=== PATIENT | female | born 1960 | race Caucasian/White ===

== ENCOUNTER 2017-05-22 18:12 | Emergency (ER) | payer OTHER ==
[~2017-05-22] VITALS: Ht 167.6 cm; Wt 95.3 kg
[2017-05-22] MEDS ORDERED: CLON0.1T PO (19:26)
[2017-05-22] MEDS ORDERED: LOSA100T3 PO (19:26)
[2017-05-22] MEDS ORDERED: SPIR50TA PO (19:26)
--- NOTE | 2017-05-22 19:32 | NUR ---
DR KEYES WAS NOTIFIED ABOUT THE PT HEALTH COMPLAINES. NO BEDS AVAILABLE. PT PLACED ON WHEELCHAIR IN HALLWAY. DR HARRIS EVALUATED THE PT.
[2017-05-22] MEDS ORDERED: CLONIDINE HCL 0.2 MG TABLET PO ONE (19:45)
[2017-05-22 19:50] LABS: BASOPHILS # (AUTO) 0.1 K/uL (0.0-8.0); BASOPHILS % (AUTO) 0.9 % (0.0-2.0); EOSINOPHILS # (AUTO) 0.1 K/uL (0.0-0.7); HEMATOCRIT 38.2 % (31.2-41.9); LYMPHOCYTES # (AUTO) 2.5 K/uL (20.0-40.0); LYMPHOCYTES % (AUTO) 27.6 % (20.5-51.5); MEAN CORPUSCULAR HEMOGLOBIN 30.2 uug (24.7-32.8); MEAN CORPUSCULAR HGB CONC 34 g/dL (32.3-35.6); MEAN CORPUSCULAR VOLUME 88.9 fL (75.5-95.3); MONOCYTES # (AUTO) 0.7 K/uL (2.0-10.0); MONOCYTES % (AUTO) 7.9 % (0.0-11.0); NEUTROPHILS # (AUTO) 5.7 K/uL (1.8-8.9); NEUTROPHILS % (AUTO) 62.6 % (38.5-71.5); PLATELET COUNT (AUTO) 238 K/uL (179-408)
[2017-05-22] MEDS ORDERED: CLONIDINE HCL 0.2 MG TABLET ONE (19:53)
[2017-05-22 19:54] LABS: CREATININE 0.8 mg/dL (0.6-1.3); POTASSIUM 4.1 mmol/L (3.5-5.1)
--- NOTE | 2017-05-22 20:55 | NUR ---
Dr. Peters at bedside for MSE
[2017-05-22] MEDS ORDERED: IV NORMAL SALINE 1000 ML BAG IV ONE (21:45)
[2017-05-22] MEDS ORDERED: IV NORMAL SALINE 250 ML IV ONE (22:00)
[2017-05-22] MEDS ORDERED: NORMAL SALINE FLUSH 10 ML DISP.SYRIN ONE (22:00)
[2017-05-22] MEDS ORDERED: IOHEXOL 300MG/ML 100 ML INFUS..BTL ONE (22:00)
--- NOTE | 2017-05-22 23:46 | NUR ---
Pt sts she is feeling better. Pt stable for discharge per MD. IV dc'd, catheter intact. Drsg applied. No problems noted to site. Pt given ACI. Pt verbalized understanding of dc instructions. Pt ambulated out of ER with steady gait.
[2017-05-22 23:47] VITALS: BP 143/88
== END 2017-05-22 23:47 | disposition home or self-care (01) ==
LOC: ER 18:16
DX: R10.13 Epigastric pain (principal); M06.9 Rheumatoid arthritis, unspecified; E11.9 Type 2 diabetes mellitus without complications; I10 Essential (primary) hypertension; M51.36 Other intervertebral disc degeneration, lumbar region
CPT/HCPCS: 36415; 70030-TC; 71010; 85025; 85730; 93005; A4663; J3490; J7030; J7050; Q9967